=== PATIENT | male | born 1955 | race African-American/Black ===

== ENCOUNTER 2018-08-02 16:37 | Inpatient (IN) | payer OTHER, MEDICARE ==
[2018-08-02 20:30] VITALS: BMI 31.6
--- NOTE | 2018-08-02 21:18 | HP ---
CIWA Score - CIWA Score Nausea/Vomitin-Mild Nausea/No Vomiting Muscle Tremors: 4-Moderate,w/Arms Extend Anxiety: 4-Mod. Anxious/Guarded Agitation: 4-Moderately Restless Paroxysmal Sweats: 1-Minimal Palms Moist Orientation: 2-Disoriented Date<2 days Tacttile Disturbances: 1-Very Mild Itch/Numbness Auditory Disturbances: 0-None Visual Disturbances: 0-None Headache: 1-Very Mild CIWA-Ar Total Score: 18 Admission [facility] - HPI Chief Complaint: Alcohol withdrawal symptoms Allergies/Adverse Reactions: Allergies Allergy/AdvReac Type Severity Reaction Status Date / Time No Known Allergies Allergy Verified 08/02/18 19:59 History of Present Illness: 62 years old male with 49 years history of alcohol dependence is seeking admission to detox. Patient has been in previous detox at [facility] and reports 6 years of sobriety. He has medical history of hypertension, DM type 2, depression and phantom pain (bilateral stump). He denies suicide attempt and suicidal ideation at this time.This is his first admission to [facility]. Exam Limitations: No Limitations - Ebola screening Have you traveled outside of the country in the last 21 days: No (N) Have you had contact with anyone from an Ebola affected area: No Have you been sick,other than usual withdrawal symptoms: No Do you have a fever: No - Review of Systems Constitutional: Malaise, Changes in sleep EENT: reports: Other (wears prescription glasses) Respiratory: reports: No Symptoms reported Cardiac: reports: No Symptoms Reported GI: reports: Diarrhea (x 4), Poor Appetite, Poor Fluid Intake, Abdominal cramping : reports: No Symptoms Reported Musculoskeletal: reports: Other (phantom pain) Patient History - Patient Medical History Hx Anemia: No Hx Asthma: No Hx Chronic Obstructive Pulmonary Disease (COPD): No Hx Cardiac Disorders: No Hx Congestive Heart Failure: No Hx Hypertension: Yes (Novasc) Hx Hypercholesterolemia: No Hx Pacemaker: No HX Cerebrovascular Accident: No Hx Seizures: No Hx Diabetes: Yes (Metformin) Hx Gastrointestinal Disorders: No Hx Liver Disease: No Hx Genitourinary Disorders: No Hx Sexually Transmitted Disorders: No Hx Renal Disease (ESRD): No Hx Thyroid Disease: No Hx Human Immunodeficiency Virus (HIV): No (Negative 2018) Hx Hepatitis C: No Hx Depression: Yes (Not on medication) Hx Suicide Attempt: No (Denies suicidal ideation at this time) Hx Schizophrenia: No Other Medical History: Phantom pain - Not on medic ation - Patient Surgical History Past Surgical History: No Hx Neurologic Surgery: No Hx Cataract Extraction: No Hx Cardiac Surgery: No Hx Lung Surgery: No Hx Abdominal Surgery: No Hx Appendectomy: No Hx Cholecystectomy: No Hx Genitourinary Surgery: No Hx Section: No Hx Orthopedic Surgery: Yes (Amputation - Right leg 2001 and left leg 2006) Other Surgical History: Anesthesia Reaction: No - PPD History Previous Implant?: Yes Documented Results: Positive w/proof Implanted On Prior [facility] Admission?: No PPD to be Administered?: No - Reproductive History Patient is a Female of Child Bearing Age (11 -55 yrs old): No (MALE) - Smoking Cessation Smoking history: Never smoked Have you smoked in the past 12 months: No Hx Chewing Tobacco Use: No Initiated information on smoking cessation: No - Substance & Tx. History Hx Alcohol Use: Yes Hx Substance Use: No Substance Use Type: Alcohol Hx Substance Use Treatment: Yes ([facility]) - Substances Abused Alcohol Route: Oral Frequency: Daily Amount used: liquor- 3 pints Age of first use: 12 Date of Last Use: 08/01/18 Family Disease History - Family Disease History Family Disease History: Diabetes: Mother, Heart Disease: Mother, CA: Father ( lung c ancer - ) Admission Physical Exam S - Vital Signs Vital Signs: Vital Signs - 24 hr 08/02/18 19:58 Temperature 98.8 F Pulse Rate 85 Respiratory 18 Rate Blood Pressure 190/100 H - Physical General Appearance: Yes: Moderate Distress, Tremorous, Anxious HEENTM: Yes: EOMI, Normal ENT Inspection, Normal Voice, SAWYER Respiratory: Yes: Lungs Clear, Normal Breath Sounds, No Respiratory Distress Neck: Yes: Supple Breast: Yes: Breast Exam Deferred Cardiology: Yes: Regular Rhythm, Regular Rate Abdominal: Yes: Normal Bowel Sounds Genitourinary: Yes: Within Normal Limits Back: Yes: Normal Inspection Extremities: Yes: Tremors, Other (Bilateral above knee amputation) Neurological: Yes: Alert, Normal Mood/Affect Integumentary: Yes: Warm Lymphatic: Yes: Within Normal Limits - Diagnostic (1) Hypertension Current Visit: Yes Status: Acute Qualifiers: Hypertension type: essential hypertension Qualified Code(s): I10 - Essential (primary) hypertension (2) DM type 2 (diabetes mellitus, type 2) Current Visit: Yes Status: Acute Qualifiers: Diabetes mellitus complication status: with unspecified complications (3) Depression Current Visit: Yes Status: Chronic Qualifiers: Depression Type: unspecified Qualified Code(s): F32.9 - Major depressive disorder, single episode, unspecified (4) History of falling, presenting hazards to health Current Visit: Yes Status: Chronic (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 - Detox or Rehab [facility] Level of Care: Medically Managed Detox Regimen/Protocol: Librium [facility] Breath Alcohol Content Breath Alcohol Content: 0 Urine Drug Screen - Results Drug Screen Negative: No Urine Drug Screen Results: BZO-Benzodiazepines
[2018-08-02] MEDS ORDERED: guaiFENesin/D-METHORPHAN HB 10 ML UNIT-DOSE CUPS PO PRN (21:35)
[2018-08-02] MEDS ORDERED: chlordiazePOXIDE HCL 25 MG CAPSULE PO PRN (21:35)
[2018-08-02] MEDS ORDERED: MAGNESIUM CITRATE 300 ML BOTTLE PO PRN (21:35)
[2018-08-02] MEDS ORDERED: MENTHOL/PHENOL 1 EACH UD MM PRN (21:35)
[2018-08-02] MEDS ORDERED: MAG HYDROX/AL HYDROX/SIMETH 30 ML UNIT-DOSE CUP PO PRN (21:35)
[2018-08-02] MEDS ORDERED: MAGNESIUM HYDROX 2400MG/30ML ORAL SUSPENSION 30 ML CUP PO PRN (21:35)
[2018-08-02] MEDS ORDERED: P-EPHED 60MG/TRIPROLIDI 2.5MG TABLET PO PRN (21:35)
[2018-08-02] MEDS ORDERED: NICOTINE POLACRILEX 2 MG GUM BC PRN (21:35)
[2018-08-02] MEDS ORDERED: ACETAMINOPHEN 325 MG TABLET (FP) PO PRN (21:35)
[2018-08-02] MEDS: amLODIPine BESYLATE 10 MG TABLET (FP) PO SCH (22:46)
[2018-08-02] MEDS: chlordiazePOXIDE HCL 25 MG CAPSULE PO SCH (22:47)
[2018-08-02] MEDS: THIAMINE HCL 100 MG TABLET (FP) PO SCH (22:47)
[2018-08-03 01:43] LABS: URINE APPEARANCE CLEAR; URINE BILIRUBIN NEGATIVE (<2.0 mg/dL); URINE COLOR STRAW; URINE GLUCOSE (UA) 1+ (NEGATIVE); URINE KETONE NEGATIVE (NEGATIVE); URINE LEUK ESTERASE NEGATIVE (NEGATIVE); URINE NITRITE NEGATIVE (NEGATIVE); URINE PROTEIN NEGATIVE (NEGATIVE); URINE UROBILINOGEN NEGATIVE mg/dL (0.2-1.0)
[2018-08-03 02:03] LABS: EPI CELLS RARE /HPF (FEW); URINE MUCUS RARE
[2018-08-03] MEDS: chlordiazePOXIDE HCL 25 MG CAPSULE PO SCH ×4 (06:29→22:11)
[2018-08-03] MEDS: metFORMIN HCL 500 MG TABLET (FP) PO SCH ×2 (06:29→16:40)
[2018-08-03] MEDS ORDERED: NICOTINE 14 MG/24 HOURS TOPICAL PATCH TD SCH (10:00)
[2018-08-03] MEDS: PRENATAL VITAMINS W/ FOLIC ACID TABLET (FP) PO SCH (10:15)
[2018-08-03] MEDS: amLODIPine BESYLATE 10 MG TABLET (FP) PO SCH (10:15)
--- NOTE | 2018-08-03 10:24 | PN ---
S CIWA - CIWA Score Nausea/Vomitin-No Nausea/No Vomiting Muscle Tremors: 2 Anxiety: 2 Agitation: 2 Paroxysmal Sweats: 2 Orientation: 0-Oriented Tacttile Disturbances: 0-None Auditory Disturbances: 0-None Visual Disturbances: 0-None Headache: 0-None Present CIWA-Ar Total Score: 8 BHS Progress Note (SOAP) Subjective: PATIENT C/O CHILLS, SWEATING, INTERRUPTED SLEEP, ANXIETY AND RESTLESSNESS. Objective: 08/03/18 10:21 Laboratory Tests 08/02/18 08/02/18 08/03/18 00:01 20:08 06:35 POC Glucometer 150 169 Urine Color Straw Urine Appearance Clear Urine pH 6.0 Ur Specific [place] 1.010 Urine Protein Negative Urine Glucose (UA) 1+ H Urine Ketones Negative Urine Blood 1+ H Urine Nitrite Negative Urine Bilirubin Negative Urine Urobilinogen Negative Ur Leukocyte Esterase Negative Urine WBC (Auto) 1 Urine RBC (Auto) 2 Ur Epithelial Cells Rare Urine Mucus Rare Vital Signs Temperature 97.6 F 08/03/18 09:23 Pulse Rate 88 08/03/18 09:23 Respiratory Rate 16 08/03/18 09:23 Blood Pressure 172/91 H 08/03/18 09:23 O2 Sat by Pulse Oximetry (%) PE: SKIN WARM AND MOIST ALERT AND ORIENTED X 3 CAR S1S2 RESP CTA BL EXT FULL ROM, +TREMORS Assessment: 08/03/18 10:22 WITHDRAWAL SX ELEVATED BP Plan: PATIENT PENDING MEDICATION ADMINISTRATION WITH AMLODIPINE WILL MONITOR BP CONTINUE DETOX REGIMEN ENCOURAGE ORAL FLUIDS IF BP REMAINS ELEVATED CONSIDER ADDING CLONIDINE.
[2018-08-03 11:41] LABS: HEMATOCRIT 31.9 % (35.4-49); HEMOGLOBIN 10.5 GM/dL (11.7-16.9); MCH 26.5 pg (25.7-33.7); MEAN CELL VOLUME 80.3 fl (80-96); MEAN PLT VOLUME 7.4 fl (7.5-11.1); PLATELET COUNT 203 K/MM3 (134-434); RBC 3.97 M/mm3 (4.00-5.60); RDW 22.2 % (11.9-15.9); WHITE BLOOD COUNT 3.6 K/mm3 (4.0-10.0)
[2018-08-03 11:58] LABS: ALBUMIN 2.9 g/dl (3.4-5.0); ALK PHOS 317 U/L (45-117); ANION GAP 11 MMOL/L (8-16); BILIRUBIN,TOTAL 0.3 mg/dL (0.2-1); BLOOD UREA NITROGEN 6 mg/dL (7-18); CALCIUM 7.5 mg/dL (8.5-10.1); CHLORIDE 99 mmol/L (98-107); CO2 27 mmol/L (21-32); CREATININE 0.7 mg/dL (0.55-1.3); GLUCOSE,RANDOM 164 mg/dL (74-106); SGOT/AST 140 U/L (15-37); SGPT/ALT 46 U/L (13-61); SODIUM 138 mmol/L (136-145); TOT PROT 7.1 g/dl (6.4-8.2)
[2018-08-03] MEDS: LOPERAMIDE HCL 2 MG CAPSULE PO PRN (12:14)
[2018-08-03 12:53] LABS: POTASSIUM 2.7 mmol/L (3.5-5.1)
[2018-08-03] MEDS ORDERED: cloNIDine HCL 0.1 MG TABLET PO ONE (15:20)
--- NOTE | 2018-08-03 16:05 | EKG ---
Test Reason : Blood Pressure : / mmHG Vent. Rate : 098 BPM Atrial Rate : 098 BPM P-R Int : 136 ms QRS Dur : 090 ms QT Int : 388 ms P-R-T Axes : 049 -01 009 degrees QTc Int : 495 ms NORMAL SINUS RHYTHM NO PREVIOUS ECGS AVAILABLE Confirmed by Jose Stern ([id number]) on 08/03/2018 4:05:08 PM Referred By: Confirmed By:Jose Stern
--- NOTE | 2018-08-03 17:28 | CONSULT ---
[facility] Psychiatric Consult - Data Date of interview: 08/03/18 Admission source: [facility] Identifying data: First admission to [facility] for this 62 y/o AA male seeking detoxification tretment on for alcohol dependence. Patient is single, a father of two, domiciled at [facility], unemployed, disabled (double BKA amputee) and supported on [facility] benefits (recently cut off ; reasons unknown as per patient). Substance Abuse History: Confirmed by the patient in this interview. patient admits to heavy consumption of alcohol (three pints of vodka daily). Details in current [facility] report : Smoking history: Never smoked. Have you smoked in the past 12 months: No. Hx Chewing Tobacco Use: No. Initiated information on smoking cessation: No. - Substance & Tx. History. Hx Alcohol Use: Yes. Hx Substance Use: No. Substance Use Type: Alcohol. Hx Substance Use Treatment: Yes ([facility]). - Substances Abused. Alcohol. Route: Oral. Frequency : Daily. Amount used: liquor- 3 pints. Age of first use: 12. Date of Last Use : 08/01/18 Medical History: Diabetes mellitus, hypertension, bilateral leg amputation below the knee (right : complication of DM + left : complication of a compartment syndrome), phantom limp pain and obesity. Psychiatric History: Patient denies. Physical/Sexual Abuse/Trauma History: Severe physical disabilities, homelessness , separation from relatives, loss of financial benefits and alcohol addiction. Additional Comment: Urine Drug Screen Results: BZO-Benzodiazepines. Noted. Mental Status Exam - Mental Status Exam Alert and Oriented to: Time, Place, Person Cognitive Function: Good Patient Appearance: Unkempt, Disheveled (moving around in a wheelchair, bilateral BKA amputee) Mood: Apprehensive (midly), Hopeful Affect: Normal Range Patient Behavior: Fatigued, Cooperative (friendly) Speech Pattern: Clear, Appropriate Voice Loudness: Normal Thought Process: Intact, Goal Oriented Thought Disorder: Not Present Hallucinations: Denies Suicidal Ideation: Denies Homicidal Ideation: Denies Insight/Judgement: Poor Sleep: Well Appetite: Good Gait/Station: Other (wheelchair-bound) Psychiatric Findings - Problem List ([place] 1, 2,3) (1) Alcohol dependence with uncomplicated withdrawal Current Visit: Yes Status: Acute - Initial Treatment Plan Initial Treatment Plan: Psychoeducation. Sleep hygiene. Detoxification. Supportive and group psychotherapy. AA meetings recommended. Patient is encouraged in his decision to pursue rehabilitation after this treatment. Made aware of the currently available resources for relapse prevention (naltrexone, acamprosate). Falls precautions. Observation.
[2018-08-03] MEDS: POTASSIUM CHLORIDE TABS 20 MEQ TABLET.ER (FP) PO SCH (17:44)
[2018-08-03] MEDS: cloNIDine HCL 0.1 MG TABLET PO SCH (22:11)
[2018-08-03] MEDS: THIAMINE HCL 100 MG TABLET (FP) PO SCH (22:11)
[2018-08-03] MEDS: MELATONIN 5 MG TABLETS PO PRN (22:11)
[2018-08-03] MEDS: IBUPROFEN 400 MG TABLET (FP) PO PRN (22:12)
[2018-08-04] MEDS: chlordiazePOXIDE HCL 25 MG CAPSULE PO SCH ×3 (05:36→17:03)
[2018-08-04] MEDS: metFORMIN HCL 500 MG TABLET (FP) PO SCH ×2 (07:38→17:02)
[2018-08-04] MEDS: POTASSIUM CHLORIDE TABS 20 MEQ TABLET.ER (FP) PO SCH ×2 (10:04→17:25)
[2018-08-04] MEDS: PRENATAL VITAMINS W/ FOLIC ACID TABLET (FP) PO SCH (10:04)
[2018-08-04] MEDS: amLODIPine BESYLATE 10 MG TABLET (FP) PO SCH (10:04)
[2018-08-04] MEDS: cloNIDine HCL 0.1 MG TABLET PO SCH ×2 (10:05→22:04)
[2018-08-04] MEDS: NICOTINE 21 MG/24 HOURS TOPICAL PATCH TD SCH (10:06)
--- NOTE | 2018-08-04 10:27 | PN ---
S CIWA - CIWA Score Nausea/Vomitin-No Nausea/No Vomiting Muscle Tremors: 2 Anxiety: 2 Agitation: 0-Normal Activity Paroxysmal Sweats: 2 Orientation: 0-Oriented Tacttile Disturbances: 0-None Auditory Disturbances: 0-None Visual Disturbances: 0-None Headache: 0-None Present CIWA-Ar Total Score: 6 BHS Progress Note (SOAP) Subjective: PATIENT C/O ANXIETY, INTERMITTENT SWEATING AND SHAKES. Objective: 08/04/18 10:25 Vital Signs Temperature 96.9 F L 08/04/18 10:00 Pulse Rate 81 08/04/18 10:00 Respiratory Rate 18 08/04/18 10:00 Blood Pressure 126/66 08/04/18 10:00 O2 Sat by Pulse Oximetry (%) Laboratory Tests 08/02/18 08/02/18 08/03/18 00:01 20:08 06:35 WBC RBC Hgb Hct MCV MCH MCHC RDW Plt Count MPV Sodium Potassium Chloride Carbon Dioxide Anion Gap BUN Creatinine Creat Clearance w eGFR POC Glucometer 150 169 Random Glucose Calcium Total Bilirubin AST ALT Alkaline Phosphatase Total Protein Albumin Urine Color Straw Urine Appearance Clear Urine pH 6.0 Ur Specific [place] 1.010 Urine Protein Negative Urine Glucose (UA) 1+ H Urine Ketones Negative Urine Blood 1+ H Urine Nitrite Negative Urine Bilirubin Negative Urine Urobilinogen Negative Ur Leukocyte Esterase Negative Urine WBC (Auto) 1 Urine RBC (Auto) 2 Ur Epithelial Cells Rare Urine Mucus Rare RPR Titer HIV 1&2 Antibody Screen HIV P24 Antigen 08/03/18 08/03/18 08/03/18 07:00 07:00 07:00 WBC 3.6 L RBC 3.97 L Hgb 10.5 L Hct 31.9 L MCV 80.3 MCH 26.5 MCHC 33.0 RDW 22.2 H Plt Count 203 MPV 7.4 L Sodium 138 Potassium 2.7 L* Chloride 99 Carbon Dioxide 27 Anion Gap 11 BUN 6 L Creatinine 0.7 Creat Clearance w eGFR > 60 POC Glucometer Random Glucose 164 H Calcium 7.5 L Total Bilirubin 0.3 AST 140 H ALT 46 Alkaline Phosphatase 317 H Total Protein 7.1 Albumin 2.9 L Urine Color Urine Appearance Urine pH Ur Specific [place] Urine Protein Urine Glucose (UA) Urine Ketones Urine Blood Urine Nitrite Urine Bilirubin Urine Urobilinogen Ur Leukocyte Esterase Urine WBC (Auto) Urine RBC (Auto) Ur Epithelial Cells Urine Mucus RPR Titer Nonreactive HIV 1&2 Antibody Screen HIV P24 Antigen 08/03/18 08/03/18 08/04/18 08:00 16:24 05:35 WBC RBC Hgb Hct MCV MCH MCHC RDW Plt Count MPV Sodium Potassium Chloride Carbon Dioxide Anion Gap BUN Creatinine Creat Clearance w eGFR POC Glucometer 251 300 Random Glucose Calcium Total Bilirubin AST ALT Alkaline Phosphatase Total Protein Albumin Urine Color Urine Appearance Urine pH Ur Specific [place] Urine Protein Urine Glucose (UA) Urine Ketones Urine Blood Urine Nitrite Urine Bilirubin Urine Urobilinogen Ur Leukocyte Esterase Urine WBC (Auto) Urine RBC (Auto) Ur Epithelial Cells Urine Mucus RPR Titer HIV 1&2 Antibody Screen Negative HIV P24 Antigen Negative PE: ALERT AND ORIENTED X 3 SKIN WARM AND MOIST CAR S1S2 RESP CTA BL EXT BLE AKA, MILD TREMORS OF HANDS Assessment: 08/04/18 10:26 WITHDRAWAL SX Plan: CONTINUE DETOX REGIMEN ENCOURAGE ORAL FLUIDS POTASSIUM LEVEL ORDERED FOR THIS AM REPEAT UA
[2018-08-04] MEDS ORDERED: INSULIN (NOVOLOG) ASPART 100 UNITS/ML 10ML VIAL SQ ONE (11:36)
[2018-08-04] MEDS ORDERED: INSULIN SLIDING SCALE (NOVOLOG) 1 VIAL SQ ONE (12:00)
[2018-08-04] MEDS: INSULIN SLIDING SCALE (NOVOLOG) 1 VIAL SQ SCH ×2 (17:02→22:04)
[2018-08-04] MEDS: THIAMINE HCL 100 MG TABLET (FP) PO SCH (22:04)
[2018-08-04] MEDS: chlordiazePOXIDE 5 MG CAPSULE PO SCH (22:04)
[2018-08-04] MEDS: MELATONIN 5 MG TABLETS PO PRN (22:04)
[2018-08-05] MEDS: metFORMIN HCL 500 MG TABLET (FP) PO SCH ×2 (06:44→17:16)
[2018-08-05] MEDS: chlordiazePOXIDE 5 MG CAPSULE PO SCH ×2 (06:44→10:08)
[2018-08-05] MEDS: INSULIN SLIDING SCALE (NOVOLOG) 1 VIAL SQ SCH ×3 (08:04→16:49)
[2018-08-05] MEDS: LOPERAMIDE HCL 2 MG CAPSULE PO PRN (09:28)
[2018-08-05] MEDS: IBUPROFEN 400 MG TABLET (FP) PO PRN (09:28)
[2018-08-05] MEDS: PRENATAL VITAMINS W/ FOLIC ACID TABLET (FP) PO SCH (10:08)
[2018-08-05] MEDS: NICOTINE 21 MG/24 HOURS TOPICAL PATCH TD SCH (10:08)
[2018-08-05] MEDS: amLODIPine BESYLATE 10 MG TABLET (FP) PO SCH (10:09)
[2018-08-05] MEDS: cloNIDine HCL 0.1 MG TABLET PO SCH (10:09)
[2018-08-05] MEDS: POTASSIUM CHLORIDE TABS 20 MEQ TABLET.ER (FP) PO SCH ×2 (10:09→17:32)
--- NOTE | 2018-08-05 12:46 | PN ---
S Progress Note (SOAP) Subjective: Tremor, interrupted sleep Objective: 08/05/18 12:40 Last Vital Signs Temp Pulse Resp BP Pulse Ox 96.2 F L 85 16 135/70 08/05/18 09:09 08/05/18 09:09 08/05/18 09:09 08/05/18 09:09 Laboratory Tests 08/02/18 08/02/18 08/03/18 00:01 20:08 06:35 WBC RBC Hgb Hct MCV MCH MCHC RDW Plt Count MPV Sodium Potassium Chloride Carbon Dioxide Anion Gap BUN Creatinine Creat Clearance w eGFR POC Glucometer 150 169 Random Glucose Calcium Total Bilirubin AST ALT Alkaline Phosphatase Total Protein Albumin Urine Color Straw Urine Appearance Clear Urine pH 6.0 Ur Specific [place] 1.010 Urine Protein Negative Urine Glucose (UA) 1+ H Urine Ketones Negative Urine Blood 1+ H Urine Nitrite Negative Urine Bilirubin Negative Urine Urobilinogen Negative Ur Leukocyte Esterase Negative Urine WBC (Auto) 1 Urine RBC (Auto) 2 Ur Epithelial Cells Rare Urine Mucus Rare RPR Titer HIV 1&2 Antibody Screen HIV P24 Antigen 08/03/18 08/03/18 08/03/18 07:00 07:00 07:00 WBC 3.6 L RBC 3.97 L Hgb 10.5 L Hct 31.9 L MCV 80.3 MCH 26.5 MCHC 33.0 RDW 22.2 H Plt Count 203 MPV 7.4 L Sodium 138 Potassium 2.7 L* Chloride 99 Carbon Dioxide 27 Anion Gap 11 BUN 6 L Creatinine 0.7 Creat Clearance w eGFR > 60 POC Glucometer Random Glucose 164 H Calcium 7.5 L Total Bilirubin 0.3 AST 140 H ALT 46 Alkaline Phosphatase 317 H Total Protein 7.1 Albumin 2.9 L Urine Color Urine Appearance Urine pH Ur Specific [place] Urine Protein Urine Glucose (UA) Urine Ketones Urine Blood Urine Nitrite Urine Bilirubin Urine Urobilinogen Ur Leukocyte Esterase Urine WBC (Auto) Urine RBC (Auto) Ur Epithelial Cells Urine Mucus RPR Titer Nonreactive HIV 1&2 Antibody Screen HIV P24 Antigen 08/03/18 08/03/18 08/04/18 08:00 16:24 05:35 WBC RBC Hgb Hct MCV MCH MCHC RDW Plt Count MPV Sodium Potassium Chloride Carbon Dioxide Anion Gap BUN Creatinine Creat Clearance w eGFR POC Glucometer 251 300 Random Glucose Calcium Total Bilirubin AST ALT Alkaline Phosphatase Total Protein Albumin Urine Color Urine Appearance Urine pH Ur Specific [place] Urine Protein Urine Glucose (UA) Urine Ketones Urine Blood Urine Nitrite Urine Bilirubin Urine Urobilinogen Ur Leukocyte Esterase Urine WBC (Auto) Urine RBC (Auto) Ur Epithelial Cells Urine Mucus RPR Titer HIV 1&2 Antibody Screen Negative HIV P24 Antigen Negative 08/04/18 08/04/18 08/04/18 11:31 16:24 21:34 WBC RBC Hgb Hct MCV MCH MCHC RDW Plt Count MPV Sodium Potassium Chloride Carbon Dioxide Anion Gap BUN Creatinine Creat Clearance w eGFR POC Glucometer 326 267 395 Random Glucose Calcium Total Bilirubin AST ALT Alkaline Phosphatase Total Protein Albumin Urine Color Urine Appearance Urine pH Ur Specific [place] Urine Protein Urine Glucose (UA) Urine Ketones Urine Blood Urine Nitrite Urine Bilirubin Urine Urobilinogen Ur Leukocyte Esterase Urine WBC (Auto) Urine RBC (Auto) Ur Epithelial Cells Urine Mucus RPR Titer HIV 1&2 Antibody Screen HIV P24 Antigen 08/05/18 08/05/18 08/05/18 06:43 07:00 10:56 WBC RBC Hgb Hct MCV MCH MCHC RDW Plt Count MPV Sodium Potassium 3.8 Chloride Carbon Dioxide Anion Gap BUN Creatinine Creat Clearance w eGFR POC Glucometer 266 374 Random Glucose Calcium Total Bilirubin AST ALT Alkaline Phosphatase Total Protein Albumin Urine Color Urine Appearance Urine pH Ur Specific [place] Urine Protein Urine Glucose (UA) Urine Ketones Urine Blood Urine Nitrite Urine Bilirubin Urine Urobilinogen Ur Leukocyte Esterase Urine WBC (Auto) Urine RBC (Auto) Ur Epithelial Cells Urine Mucus RPR Titer HIV 1&2 Antibody Screen HIV P24 Antigen Labs reviewed: abnormal UA Assessment: 08/05/18 12:46 Withdrawal sxs Noted with abnormal UA Plan: Continue detox Abnormal UA: encouraged PO water intake, repeat UA
[2018-08-05] MEDS ORDERED: chlordiazePOXIDE HCL 10 MG CAPSULE PO ONE (17:00)
--- NOTE | 2018-08-05 17:42 | DS ---
[facility] Detox Discharge Summary Admission Date: 08/02/18 Discharge Date: 08/05/18 - History Present History: Alcohol Dependence Additional Comments: Patient admitted for alcohol withdrawal symptoms. Pertinent Past History: Patient w/ a 47 year hx of alcohol use disorder. Co-morbidities DM, Bilateral AKA, HTN. Patient w/ a hx PPD (+) w/o pulmonary symptoms. - Physical Exam Results Vital Signs: Vital Signs Temperature 96.7 F L 08/05/18 13:49 Pulse Rate 78 08/05/18 13:49 Respiratory Rate 16 08/05/18 13:49 Blood Pressure 150/76 08/05/18 13:49 O2 Sat by Pulse Oximetry (%) Pertinent Admission Physical Exam Findings: Patient admitted to detox to assist in alcohol withdrawal and facilitate detox. Co-morbidities monitored and treated as appropriate. Lab Results WBC 3.6 K/mm3 (4.0-10.0) L 08/03/18 07:00 RBC 3.97 M/mm3 (4.00-5.60) L 08/03/18 07:00 Hgb 10.5 GM/dL (11.7-16.9) L 08/03/18 07:00 Hct 31.9 % (35.4-49) L 08/03/18 07:00 MCV 80.3 fl (80-96) 08/03/18 07:00 MCHC 33.0 g/dl (32.0-35.9) 08/03/18 07:00 RDW 22.2 % (11.9-15.9) H 08/03/18 07:00 Plt Count 203 K/MM3 (134-434) 08/03/18 07:00 Sodium 138 mmol/L (136-145) 08/03/18 07:00 Potassium 3.8 mmol/L (3.5-5.1) 08/05/18 07:00 Chloride 99 mmol/L (98-107) 08/03/18 07:00 Carbon Dioxide 27 mmol/L (21-32) 08/03/18 07:00 Anion Gap 11 MMOL/L (8-16) 08/03/18 07:00 BUN 6 mg/dL (7-18) L 08/03/18 07:00 Creatinine 0.7 mg/dL (0.55-1.3) 08/03/18 07:00 Random Glucose 164 mg/dL (74-106) H 08/03/18 07:00 Calcium 7.5 mg/dL (8.5-10.1) L 08/03/18 07:00 CXR negative. - Treatment Hospital Course: Detox Protocol Followed, Detoxed Safely, Responded well, Discharged Condition Good, Rehab Referral Accepted Patient has Accepted a Rehab Referral to: [facility] - Medication Discharge Medications: Ambulatory Orders Amlodipine Besylate [Norvasc -] 10 mg PO DAILY 08/02/18 Metformin HCl [Glucophage] 500 mg PO BID 08/02/18 - Diagnosis (1) S/P AKA (above knee amputation) bilateral Current Visit: Yes Status: Chronic (2) Alcohol dependence with uncomplicated withdrawal Current Visit: Yes Status: Acute (3) DM type 2 (diabetes mellitus, type 2) Current Visit: Yes Status: Chronic Qualifiers: Diabetes mellitus exterminator helper termite insulin use: without fci use Diabetes mellitus complication status: with hyperglycemia Qualified Code(s): E11.65 - Type 2 diabetes mellitus with hyperglycemia (4) History of falling, presenting hazards to health Current Visit: Yes Status: Chronic (5) Hypertension Current Visit: Yes Status: Chronic Qualifiers: Hypertension type: essential hypertension Qualified Code(s): I10 - Essential (primary) hypertension (6) Positive PPD Current Visit: Yes Status: Chronic - AMA Did Patient Leave Against Medical Advice: No
[2018-08-05 17:43] VITALS: BP 159/79; PULSE 84; TEMP 97.1
[2018-08-05 18:34] LABS: URINE APPEARANCE SLCLOUDY; URINE BILIRUBIN NEGATIVE (<2.0 mg/dL); URINE COLOR YELLOW; URINE GLUCOSE (UA) 3+ (NEGATIVE); URINE KETONE TRACE (NEGATIVE); URINE LEUK ESTERASE TRACE (NEGATIVE); URINE NITRITE NEGATIVE (NEGATIVE); URINE PROTEIN NEGATIVE (NEGATIVE); URINE UROBILINOGEN NEGATIVE mg/dL (0.2-1.0)
[2018-08-05 18:50] LABS: EPI CELLS RARE /HPF (FEW); URINE MUCUS RARE
[2018-08-05] MEDS ORDERED: chlordiazePOXIDE HCL 10 MG CAPSULE PO SCH (23:00)
== END 2018-08-05 06:35 | disposition other institution (70) | DRG 775 ==
LOC: YASAS 16:37 → Y3N 20:49
PROC: HZ2ZZZZ Detoxification Services for Substance Abuse Treatment (ICD-10-PCS; principal; 2018-08-02)
DX: F10.230 Alcohol dependence with withdrawal, uncomplicated (principal); F32.9 Major depressive disorder, single episode, unspecified; I10 Essential (primary) hypertension; E11.9 Type 2 diabetes mellitus without complications; Z79.84 Long term (current) use of oral hypoglycemic drugs; E87.6 Hypokalemia; R82.90 Unspecified abnormal findings in urine; R76.11 Nonspecific reaction to tuberculin skin test without active tuberculosis; Z91.81 History of falling; Z89.612 Acquired absence of left leg above knee; Z89.611 Acquired absence of right leg above knee; Z99.3 Dependence on wheelchair
CPT/HCPCS: 36415; 71045-TC-FY; 80053; 81003; 81015; 82962; 84132; 85027; 86593; 87389; 93005; 93010; J0735

== ENCOUNTER 2018-08-05 19:05 | Inpatient (IN) | payer MEDICARE, OTHER ==
--- NOTE | 2018-08-05 20:18 | HP ---
[facility] Rehab Assess/Revision - Admission History Admitted to Rehab from: [facility] Date of Admission to Rehab: 08/05/2018 - Findings Detox History & Physical reviewed: Yes Concur with findings: Yes Inpatient Rehab Admission - Initial Determination Are CD services needed?: Yes Free of communicable disease: Yes Not in need of hospitalization: Yes - Rehab Admission Criteria Previous failed treatment: Yes Poor recovery environment: Yes Comorbidities: Yes Lacks judgement: No Patient is meeting Inpatient Rehab admission criteria:: Yes
[2018-08-05] MEDS ORDERED: LOPERAMIDE HCL 2 MG CAPSULE PO PRN (20:21)
[2018-08-05] MEDS ORDERED: MAGNESIUM HYDROX 2400MG/30ML ORAL SUSPENSION 30 ML CUP PO PRN (20:21)
[2018-08-05] MEDS ORDERED: ACETAMINOPHEN 325 MG TABLET (FP) PO PRN (20:21)
[2018-08-05] MEDS ORDERED: MENTHOL/PHENOL 1 EACH UD MM PRN (20:21)
[2018-08-05] MEDS ORDERED: MAGNESIUM CITRATE 300 ML BOTTLE PO PRN (20:21)
[2018-08-05 20:51] VITALS: BMI 31.6
[2018-08-05] MEDS: INSULIN SLIDING SCALE (NOVOLOG) 1 VIAL SQ SCH (21:39)
[2018-08-05] MEDS: MAG HYDROX/AL HYDROX/SIMETH 30 ML UNIT-DOSE CUP PO PRN (21:41)
[2018-08-05] MEDS: MELATONIN 5 MG TABLETS PO PRN (21:42)
[2018-08-05] MEDS: THIAMINE HCL 100 MG TABLET (FP) PO SCH (21:42)
[2018-08-05] MEDS: IBUPROFEN 400 MG TABLET (FP) PO PRN (21:42)
[2018-08-06] MEDS: metFORMIN HCL 500 MG TABLET (FP) PO SCH ×2 (06:59→16:55)
[2018-08-06] MEDS: INSULIN SLIDING SCALE (NOVOLOG) 1 VIAL SQ SCH ×4 (06:59→21:33)
[2018-08-06] MEDS: PRENATAL VITAMINS W/ FOLIC ACID TABLET (FP) PO SCH (09:52)
[2018-08-06] MEDS: amLODIPine BESYLATE 10 MG TABLET (FP) PO SCH (09:53)
[2018-08-06] MEDS: NICOTINE POLACRILEX 2 MG GUM BUC PRN (09:56)
[2018-08-06] MEDS ORDERED: NICOTINE 14 MG/24 HOURS TOPICAL PATCH TD SCH (10:00)
[2018-08-06] MEDS ORDERED: INSULIN (NOVOLOG) ASPART 100 UNITS/ML 10ML VIAL ONE ×2 (11:49→16:44)
[2018-08-06] MEDS: NICOTINE 21 MG/24 HOURS TOPICAL PATCH TD SCH (12:05)
--- NOTE | 2018-08-06 14:18 | HP ---
Psychiatrist Admission - Data Date of interview: 08/06/18 Admission source: [address] [place] [address] Identifying data: This is the first admission to [address] [place] [address] for this 62 yo single AA father of 2 grown children,resides in [facility],supported by [facility]. Medical History: Dm,HTN,S/P Bilateral above the knees amputation. Psychiatric History: denies Physical/Sexual Abuse/Trauma History: denies Vital Signs: Vital Signs - 24 hr 08/06/18 08/06/18 08/06/18 03:30 06:53 09:30 Temperature 97.7 F Pulse Rate 69 73 Respiratory 18 Rate Blood Pressure 150/80 130/66 Allergies/Adverse Reactions: Allergies Allergy/AdvReac Type Severity Reaction Status Date / Time No Known Allergies Allergy Verified 08/02/18 19:59 Date of last physical exam: 08/02/18 Concur with the findings of this exam: Yes - Substance Abuse/Tx History Hx Alcohol Use: Yes (reports drinking since 14-15 yo,1 -3 pints of vodka daily) Hx Substance Use: No Substance Use Type: Alcohol Hx Substance Use Treatment: Yes [facility]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 ) Mental Status Exam - Mental Status Exam Alert and Oriented to: Time (wheel chair bound), Place, Person Cognitive Function: Grossly Intact Patient Appearance: Unkempt Mood: Euthymic Affect: Mood Congruent Patient Behavior: Cooperative Speech Pattern: Clear Voice Loudness: Normal Thought Disorder: Not Present Hallucinations: Denies Suicidal Ideation: Denies Homicidal Ideation: Denies Sleep: Fair Appetite: Good Muscle strength/Tone: Normal Gait/Station: Normal Psychiatric Findings - Problem List ([place] 1, 2,3) (1) Hypertension Current Visit: Yes Status: Chronic Qualifiers: Hypertension type: essential hypertension (2) Positive PPD Current Visit: Yes Status: Chronic (3) S/P AKA (above knee amputation) bilateral Current Visit: Yes Status: Chronic (4) DM type 2 (diabetes mellitus, type 2) Current Visit: Yes Status: Chronic Qualifiers: Diabetes mellitus termite helper insulin use: without halfway use Diabetes mellitus complication status: with unspecified complications Qualified Code(s) : E11.8 - Type 2 diabetes mellitus with unspecified complications (5) Alcohol dependence Current Visit: Yes Status: Chronic - Initial Treatment Plan Initial Treatment Plan: Will monitor progress.
[2018-08-06] MEDS: MELATONIN 5 MG TABLETS PO PRN (21:32)
[2018-08-06] MEDS: MAG HYDROX/AL HYDROX/SIMETH 30 ML UNIT-DOSE CUP PO PRN (21:32)
[2018-08-06] MEDS: IBUPROFEN 400 MG TABLET (FP) PO PRN (21:32)
[2018-08-06] MEDS: THIAMINE HCL 100 MG TABLET (FP) PO SCH (21:34)
[2018-08-07] MEDS: NICOTINE POLACRILEX 2 MG GUM BUC PRN ×3 (06:22→20:36)
[2018-08-07] MEDS: INSULIN SLIDING SCALE (NOVOLOG) 1 VIAL SQ SCH ×4 (07:10→21:08)
[2018-08-07] MEDS: metFORMIN HCL 500 MG TABLET (FP) PO SCH ×2 (07:10→16:56)
[2018-08-07] MEDS: PRENATAL VITAMINS W/ FOLIC ACID TABLET (FP) PO SCH (09:56)
[2018-08-07] MEDS: NICOTINE 21 MG/24 HOURS TOPICAL PATCH TD SCH (09:57)
[2018-08-07] MEDS: amLODIPine BESYLATE 10 MG TABLET (FP) PO SCH (09:57)
[2018-08-07] MEDS: IBUPROFEN 400 MG TABLET (FP) PO PRN ×2 (09:57→16:58)
[2018-08-07] MEDS ORDERED: INSULIN (NOVOLOG) ASPART 100 UNITS/ML 10ML VIAL ONE ×2 (11:58→16:39)
[2018-08-07] MEDS: THIAMINE HCL 100 MG TABLET (FP) PO SCH (21:08)
[2018-08-07] MEDS: MELATONIN 5 MG TABLETS PO PRN (21:08)
[2018-08-08] MEDS: INSULIN SLIDING SCALE (NOVOLOG) 1 VIAL SQ SCH ×4 (07:27→21:18)
[2018-08-08] MEDS ORDERED: INSULIN (NOVOLOG) ASPART 100 UNITS/ML 10ML VIAL ONE ×3 (07:27→16:24)
[2018-08-08] MEDS: metFORMIN HCL 500 MG TABLET (FP) PO SCH ×2 (07:27→16:47)
[2018-08-08] MEDS: PRENATAL VITAMINS W/ FOLIC ACID TABLET (FP) PO SCH (10:15)
[2018-08-08] MEDS: amLODIPine BESYLATE 10 MG TABLET (FP) PO SCH (10:15)
[2018-08-08] MEDS: NICOTINE 21 MG/24 HOURS TOPICAL PATCH TD SCH (10:15)
[2018-08-08] MEDS: NICOTINE POLACRILEX 2 MG GUM BUC PRN (19:09)
[2018-08-08] MEDS: IBUPROFEN 400 MG TABLET (FP) PO PRN (21:18)
[2018-08-08] MEDS: THIAMINE HCL 100 MG TABLET (FP) PO SCH (21:18)
[2018-08-08] MEDS: MELATONIN 5 MG TABLETS PO PRN (21:19)
[2018-08-09] MEDS: metFORMIN HCL 500 MG TABLET (FP) PO SCH ×2 (06:52→16:50)
[2018-08-09] MEDS: INSULIN SLIDING SCALE (NOVOLOG) 1 VIAL SQ SCH ×4 (06:56→21:38)
[2018-08-09] MEDS ORDERED: INSULIN (NOVOLOG) ASPART 100 UNITS/ML 10ML VIAL ONE ×3 (07:04→16:47)
[2018-08-09] MEDS: PRENATAL VITAMINS W/ FOLIC ACID TABLET (FP) PO SCH (09:51)
[2018-08-09] MEDS: amLODIPine BESYLATE 10 MG TABLET (FP) PO SCH (09:51)
[2018-08-09] MEDS: NICOTINE 21 MG/24 HOURS TOPICAL PATCH TD SCH (09:51)
[2018-08-09] MEDS: IBUPROFEN 400 MG TABLET (FP) PO PRN ×2 (09:52→21:36)
[2018-08-09] MEDS: MELATONIN 5 MG TABLETS PO PRN (21:34)
[2018-08-09] MEDS: THIAMINE HCL 100 MG TABLET (FP) PO SCH (21:34)
[2018-08-10] MEDS: INSULIN SLIDING SCALE (NOVOLOG) 1 VIAL SQ SCH ×4 (07:16→21:11)
[2018-08-10] MEDS: metFORMIN HCL 500 MG TABLET (FP) PO SCH ×2 (07:16→16:43)
[2018-08-10] MEDS: PRENATAL VITAMINS W/ FOLIC ACID TABLET (FP) PO SCH (10:11)
[2018-08-10] MEDS: NICOTINE 21 MG/24 HOURS TOPICAL PATCH TD SCH (10:11)
[2018-08-10] MEDS: amLODIPine BESYLATE 10 MG TABLET (FP) PO SCH (10:11)
[2018-08-10] MEDS: IBUPROFEN 400 MG TABLET (FP) PO PRN ×2 (10:12→21:11)
[2018-08-10] MEDS: THIAMINE HCL 100 MG TABLET (FP) PO SCH (21:11)
[2018-08-10] MEDS: MELATONIN 5 MG TABLETS PO PRN (21:12)
[2018-08-11] MEDS: INSULIN SLIDING SCALE (NOVOLOG) 1 VIAL SQ SCH ×4 (07:01→21:22)
[2018-08-11] MEDS: metFORMIN HCL 500 MG TABLET (FP) PO SCH ×2 (07:01→17:14)
[2018-08-11] MEDS: amLODIPine BESYLATE 10 MG TABLET (FP) PO SCH (09:40)
[2018-08-11] MEDS: NICOTINE 21 MG/24 HOURS TOPICAL PATCH TD SCH (09:40)
[2018-08-11] MEDS: IBUPROFEN 400 MG TABLET (FP) PO PRN ×2 (09:40→17:19)
[2018-08-11] MEDS: PRENATAL VITAMINS W/ FOLIC ACID TABLET (FP) PO SCH (09:40)
[2018-08-11] MEDS ORDERED: INSULIN (NOVOLOG) ASPART 100 UNITS/ML 10ML VIAL ONE ×2 (12:17→17:15)
[2018-08-11] MEDS: MELATONIN 5 MG TABLETS PO PRN (21:20)
[2018-08-11] MEDS: THIAMINE HCL 100 MG TABLET (FP) PO SCH (21:20)
[2018-08-11] MEDS: NICOTINE POLACRILEX 2 MG GUM BUC PRN (21:20)
[2018-08-12] MEDS: NICOTINE POLACRILEX 2 MG GUM BUC PRN ×2 (06:03→09:58)
[2018-08-12] MEDS: INSULIN SLIDING SCALE (NOVOLOG) 1 VIAL SQ SCH ×4 (07:03→21:09)
[2018-08-12] MEDS: metFORMIN HCL 500 MG TABLET (FP) PO SCH ×2 (07:03→16:49)
[2018-08-12] MEDS: NICOTINE 21 MG/24 HOURS TOPICAL PATCH TD SCH (09:57)
[2018-08-12] MEDS: PRENATAL VITAMINS W/ FOLIC ACID TABLET (FP) PO SCH (09:57)
[2018-08-12] MEDS: amLODIPine BESYLATE 10 MG TABLET (FP) PO SCH (09:57)
[2018-08-12] MEDS: IBUPROFEN 400 MG TABLET (FP) PO PRN ×2 (09:58→21:09)
[2018-08-12] MEDS ORDERED: INSULIN (NOVOLOG) ASPART 100 UNITS/ML 10ML VIAL ONE ×3 (11:38→21:08)
[2018-08-12] MEDS: THIAMINE HCL 100 MG TABLET (FP) PO SCH (21:04)
[2018-08-12] MEDS: MELATONIN 5 MG TABLETS PO PRN (21:08)
[2018-08-13] MEDS: INSULIN SLIDING SCALE (NOVOLOG) 1 VIAL SQ SCH ×4 (07:25→21:22)
[2018-08-13] MEDS: metFORMIN HCL 500 MG TABLET (FP) PO SCH ×2 (07:25→16:43)
[2018-08-13] MEDS: NICOTINE 21 MG/24 HOURS TOPICAL PATCH TD SCH (09:59)
[2018-08-13] MEDS: PRENATAL VITAMINS W/ FOLIC ACID TABLET (FP) PO SCH (09:59)
[2018-08-13] MEDS: amLODIPine BESYLATE 10 MG TABLET (FP) PO SCH (09:59)
[2018-08-13] MEDS: IBUPROFEN 400 MG TABLET (FP) PO PRN ×2 (10:00→21:23)
[2018-08-13] MEDS ORDERED: INSULIN (NOVOLOG) ASPART 100 UNITS/ML 10ML VIAL ONE ×2 (11:55→16:33)
[2018-08-13] MEDS: NICOTINE POLACRILEX 2 MG GUM BUC PRN (16:45)
[2018-08-13] MEDS: MELATONIN 5 MG TABLETS PO PRN (21:23)
[2018-08-13] MEDS: THIAMINE HCL 100 MG TABLET (FP) PO SCH (21:23)
[2018-08-14] MEDS: metFORMIN HCL 500 MG TABLET (FP) PO SCH ×2 (06:45→17:00)
[2018-08-14] MEDS: INSULIN SLIDING SCALE (NOVOLOG) 1 VIAL SQ SCH ×4 (06:45→22:02)
[2018-08-14] MEDS: amLODIPine BESYLATE 10 MG TABLET (FP) PO SCH (10:06)
[2018-08-14] MEDS: PRENATAL VITAMINS W/ FOLIC ACID TABLET (FP) PO SCH (10:06)
[2018-08-14] MEDS: NICOTINE 21 MG/24 HOURS TOPICAL PATCH TD SCH (10:07)
[2018-08-14] MEDS ORDERED: INSULIN (NOVOLOG) ASPART 100 UNITS/ML 10ML VIAL ONE ×2 (17:00→23:29)
[2018-08-14] MEDS: THIAMINE HCL 100 MG TABLET (FP) PO SCH (22:04)
[2018-08-14] MEDS: IBUPROFEN 400 MG TABLET (FP) PO PRN (22:04)
[2018-08-14] MEDS: MAG HYDROX/AL HYDROX/SIMETH 30 ML UNIT-DOSE CUP PO PRN (22:04)
[2018-08-14] MEDS: NICOTINE POLACRILEX 2 MG GUM BUC PRN (22:05)
[2018-08-14] MEDS: MELATONIN 5 MG TABLETS PO PRN (22:05)
[2018-08-15] MEDS: metFORMIN HCL 500 MG TABLET (FP) PO SCH ×2 (06:27→17:01)
[2018-08-15] MEDS ORDERED: INSULIN (NOVOLOG) ASPART 100 UNITS/ML 10ML VIAL ONE ×3 (06:29→21:26)
[2018-08-15] MEDS: INSULIN SLIDING SCALE (NOVOLOG) 1 VIAL SQ SCH ×4 (06:30→21:26)
[2018-08-15] MEDS: amLODIPine BESYLATE 10 MG TABLET (FP) PO SCH (09:37)
[2018-08-15] MEDS: PRENATAL VITAMINS W/ FOLIC ACID TABLET (FP) PO SCH (09:37)
[2018-08-15] MEDS: NICOTINE 21 MG/24 HOURS TOPICAL PATCH TD SCH (09:37)
[2018-08-15] MEDS: IBUPROFEN 400 MG TABLET (FP) PO PRN (09:39)
[2018-08-15] MEDS: NICOTINE POLACRILEX 2 MG GUM BUC PRN (21:21)
[2018-08-15] MEDS: THIAMINE HCL 100 MG TABLET (FP) PO SCH (21:21)
[2018-08-15] MEDS: MELATONIN 5 MG TABLETS PO PRN (21:21)
[2018-08-16] MEDS: INSULIN SLIDING SCALE (NOVOLOG) 1 VIAL SQ SCH ×4 (06:56→21:15)
[2018-08-16] MEDS: metFORMIN HCL 500 MG TABLET (FP) PO SCH ×2 (06:56→16:42)
[2018-08-16] MEDS: PRENATAL VITAMINS W/ FOLIC ACID TABLET (FP) PO SCH (10:06)
[2018-08-16] MEDS: amLODIPine BESYLATE 10 MG TABLET (FP) PO SCH (10:06)
[2018-08-16] MEDS: IBUPROFEN 400 MG TABLET (FP) PO PRN ×2 (10:06→21:16)
[2018-08-16] MEDS: NICOTINE 21 MG/24 HOURS TOPICAL PATCH TD SCH (10:06)
[2018-08-16] MEDS ORDERED: INSULIN (NOVOLOG) ASPART 100 UNITS/ML 10ML VIAL ONE ×2 (11:49→16:34)
[2018-08-16] MEDS: THIAMINE HCL 100 MG TABLET (FP) PO SCH (21:16)
[2018-08-16] MEDS: MELATONIN 5 MG TABLETS PO PRN (21:16)
[2018-08-16] MEDS: NICOTINE POLACRILEX 2 MG GUM BUC PRN (21:17)
[2018-08-17] MEDS: metFORMIN HCL 500 MG TABLET (FP) PO SCH ×2 (06:45→17:27)
[2018-08-17] MEDS: INSULIN SLIDING SCALE (NOVOLOG) 1 VIAL SQ SCH ×4 (06:46→21:24)
[2018-08-17] MEDS: PRENATAL VITAMINS W/ FOLIC ACID TABLET (FP) PO SCH (09:48)
[2018-08-17] MEDS: NICOTINE 21 MG/24 HOURS TOPICAL PATCH TD SCH (09:48)
[2018-08-17] MEDS: amLODIPine BESYLATE 10 MG TABLET (FP) PO SCH (09:48)
[2018-08-17] MEDS: IBUPROFEN 400 MG TABLET (FP) PO PRN ×2 (09:50→21:23)
[2018-08-17] MEDS: NICOTINE POLACRILEX 2 MG GUM BUC PRN ×2 (09:51→21:24)
[2018-08-17] MEDS ORDERED: INSULIN (NOVOLOG) ASPART 100 UNITS/ML 10ML VIAL ONE ×2 (11:57→17:24)
[2018-08-17] MEDS: THIAMINE HCL 100 MG TABLET (FP) PO SCH (21:23)
[2018-08-17] MEDS: MELATONIN 5 MG TABLETS PO PRN (21:23)
[2018-08-18] MEDS: NICOTINE POLACRILEX 2 MG GUM BUC PRN ×3 (06:07→21:09)
[2018-08-18] MEDS: metFORMIN HCL 500 MG TABLET (FP) PO SCH ×2 (06:55→16:44)
[2018-08-18] MEDS: INSULIN SLIDING SCALE (NOVOLOG) 1 VIAL SQ SCH ×4 (06:55→21:05)
[2018-08-18] MEDS: amLODIPine BESYLATE 10 MG TABLET (FP) PO SCH (10:00)
[2018-08-18] MEDS: PRENATAL VITAMINS W/ FOLIC ACID TABLET (FP) PO SCH (10:00)
[2018-08-18] MEDS: NICOTINE 21 MG/24 HOURS TOPICAL PATCH TD SCH (10:00)
[2018-08-18] MEDS: IBUPROFEN 400 MG TABLET (FP) PO PRN ×2 (10:01→21:07)
[2018-08-18] MEDS ORDERED: INSULIN (NOVOLOG) ASPART 100 UNITS/ML 10ML VIAL ONE ×2 (12:04→20:22)
[2018-08-18] MEDS: THIAMINE HCL 100 MG TABLET (FP) PO SCH (21:05)
[2018-08-18] MEDS: MELATONIN 5 MG TABLETS PO PRN (21:06)
[2018-08-18] MEDS: MAG HYDROX/AL HYDROX/SIMETH 30 ML UNIT-DOSE CUP PO PRN (21:09)
[2018-08-19] MEDS: metFORMIN HCL 500 MG TABLET (FP) PO SCH ×2 (06:43→17:03)
[2018-08-19] MEDS: NICOTINE POLACRILEX 2 MG GUM BUC PRN ×3 (06:43→21:18)
[2018-08-19] MEDS: INSULIN SLIDING SCALE (NOVOLOG) 1 VIAL SQ SCH ×4 (06:43→21:19)
[2018-08-19] MEDS: PRENATAL VITAMINS W/ FOLIC ACID TABLET (FP) PO SCH (09:57)
[2018-08-19] MEDS: NICOTINE 21 MG/24 HOURS TOPICAL PATCH TD SCH (09:57)
[2018-08-19] MEDS: amLODIPine BESYLATE 10 MG TABLET (FP) PO SCH (09:57)
[2018-08-19] MEDS: IBUPROFEN 400 MG TABLET (FP) PO PRN ×2 (09:58→21:17)
[2018-08-19] MEDS ORDERED: INSULIN (NOVOLOG) ASPART 100 UNITS/ML 10ML VIAL ONE (11:37)
[2018-08-19] MEDS: THIAMINE HCL 100 MG TABLET (FP) PO SCH (21:17)
[2018-08-19] MEDS: MELATONIN 5 MG TABLETS PO PRN (21:17)
[2018-08-20] MEDS: INSULIN SLIDING SCALE (NOVOLOG) 1 VIAL SQ SCH ×4 (06:15→21:16)
[2018-08-20] MEDS: metFORMIN HCL 500 MG TABLET (FP) PO SCH ×2 (06:15→16:54)
[2018-08-20] MEDS: NICOTINE POLACRILEX 2 MG GUM BUC PRN ×4 (06:16→21:19)
[2018-08-20] MEDS: IBUPROFEN 400 MG TABLET (FP) PO PRN ×2 (06:17→21:16)
[2018-08-20] MEDS: NICOTINE 21 MG/24 HOURS TOPICAL PATCH TD SCH (10:07)
[2018-08-20] MEDS: amLODIPine BESYLATE 10 MG TABLET (FP) PO SCH (10:07)
[2018-08-20] MEDS: PRENATAL VITAMINS W/ FOLIC ACID TABLET (FP) PO SCH (10:07)
[2018-08-20] MEDS ORDERED: INSULIN (NOVOLOG) ASPART 100 UNITS/ML 10ML VIAL ONE (12:12)
[2018-08-20] MEDS: THIAMINE HCL 100 MG TABLET (FP) PO SCH (21:16)
[2018-08-20] MEDS: MELATONIN 5 MG TABLETS PO PRN (21:17)
[2018-08-21] MEDS: INSULIN SLIDING SCALE (NOVOLOG) 1 VIAL SQ SCH ×4 (07:31→21:19)
[2018-08-21] MEDS: metFORMIN HCL 500 MG TABLET (FP) PO SCH ×2 (07:31→16:44)
[2018-08-21] MEDS: IBUPROFEN 400 MG TABLET (FP) PO PRN ×2 (10:21→21:18)
[2018-08-21] MEDS: amLODIPine BESYLATE 10 MG TABLET (FP) PO SCH (10:21)
[2018-08-21] MEDS: NICOTINE 21 MG/24 HOURS TOPICAL PATCH TD SCH (10:21)
[2018-08-21] MEDS: PRENATAL VITAMINS W/ FOLIC ACID TABLET (FP) PO SCH (10:21)
[2018-08-21] MEDS ORDERED: INSULIN (NOVOLOG) ASPART 100 UNITS/ML 10ML VIAL ONE (12:08)
[2018-08-21] MEDS: NICOTINE POLACRILEX 2 MG GUM BUC PRN (16:45)
[2018-08-21] MEDS: MELATONIN 5 MG TABLETS PO PRN (21:18)
[2018-08-21] MEDS: THIAMINE HCL 100 MG TABLET (FP) PO SCH (21:18)
[2018-08-22] MEDS: NICOTINE POLACRILEX 2 MG GUM BUC PRN ×2 (06:07→16:39)
[2018-08-22] MEDS: INSULIN SLIDING SCALE (NOVOLOG) 1 VIAL SQ SCH ×4 (06:45→21:33)
[2018-08-22] MEDS: metFORMIN HCL 500 MG TABLET (FP) PO SCH ×2 (06:45→16:38)
[2018-08-22] MEDS: PRENATAL VITAMINS W/ FOLIC ACID TABLET (FP) PO SCH (10:06)
[2018-08-22] MEDS: amLODIPine BESYLATE 10 MG TABLET (FP) PO SCH (10:06)
[2018-08-22] MEDS: NICOTINE 21 MG/24 HOURS TOPICAL PATCH TD SCH (10:06)
[2018-08-22] MEDS: IBUPROFEN 400 MG TABLET (FP) PO PRN ×2 (10:08→21:31)
[2018-08-22] MEDS: MELATONIN 5 MG TABLETS PO PRN (21:31)
[2018-08-22] MEDS: THIAMINE HCL 100 MG TABLET (FP) PO SCH (21:33)
[2018-08-23] MEDS: metFORMIN HCL 500 MG TABLET (FP) PO SCH ×2 (06:21→16:37)
[2018-08-23] MEDS: INSULIN SLIDING SCALE (NOVOLOG) 1 VIAL SQ SCH ×4 (07:34→21:30)
[2018-08-23] MEDS: PRENATAL VITAMINS W/ FOLIC ACID TABLET (FP) PO SCH (10:19)
[2018-08-23] MEDS: amLODIPine BESYLATE 10 MG TABLET (FP) PO SCH (10:19)
[2018-08-23] MEDS: NICOTINE 21 MG/24 HOURS TOPICAL PATCH TD SCH (10:19)
[2018-08-23] MEDS: IBUPROFEN 400 MG TABLET (FP) PO PRN ×2 (10:21→21:29)
[2018-08-23] MEDS ORDERED: INSULIN (NOVOLOG) ASPART 100 UNITS/ML 10ML VIAL ONE (11:35)
[2018-08-23] MEDS: THIAMINE HCL 100 MG TABLET (FP) PO SCH (21:28)
[2018-08-23] MEDS: MELATONIN 5 MG TABLETS PO PRN (21:28)
[2018-08-23] MEDS: NICOTINE POLACRILEX 2 MG GUM BUC PRN (21:30)
[2018-08-24] MEDS: IBUPROFEN 400 MG TABLET (FP) PO PRN ×3 (04:56→21:11)
[2018-08-24] MEDS: metFORMIN HCL 500 MG TABLET (FP) PO SCH ×2 (07:21→16:46)
[2018-08-24] MEDS: INSULIN SLIDING SCALE (NOVOLOG) 1 VIAL SQ SCH ×4 (07:21→21:12)
[2018-08-24] MEDS: amLODIPine BESYLATE 10 MG TABLET (FP) PO SCH (10:11)
[2018-08-24] MEDS: PRENATAL VITAMINS W/ FOLIC ACID TABLET (FP) PO SCH (10:11)
[2018-08-24] MEDS: NICOTINE 21 MG/24 HOURS TOPICAL PATCH TD SCH (10:11)
[2018-08-24] MEDS ORDERED: INSULIN (NOVOLOG) ASPART 100 UNITS/ML 10ML VIAL ONE (11:56)
[2018-08-24] MEDS: NICOTINE POLACRILEX 2 MG GUM BUC PRN (16:46)
[2018-08-24] MEDS: THIAMINE HCL 100 MG TABLET (FP) PO SCH (21:11)
[2018-08-24] MEDS: MELATONIN 5 MG TABLETS PO PRN (21:11)
[2018-08-25] MEDS: IBUPROFEN 400 MG TABLET (FP) PO PRN ×3 (06:08→21:45)
[2018-08-25] MEDS: metFORMIN HCL 500 MG TABLET (FP) PO SCH ×2 (07:02→16:56)
[2018-08-25] MEDS: INSULIN SLIDING SCALE (NOVOLOG) 1 VIAL SQ SCH ×4 (07:02→21:45)
[2018-08-25] MEDS: PRENATAL VITAMINS W/ FOLIC ACID TABLET (FP) PO SCH (10:02)
[2018-08-25] MEDS: amLODIPine BESYLATE 10 MG TABLET (FP) PO SCH (10:02)
[2018-08-25] MEDS: NICOTINE 21 MG/24 HOURS TOPICAL PATCH TD SCH (10:02)
[2018-08-25] MEDS ORDERED: INSULIN (NOVOLOG) ASPART 100 UNITS/ML 10ML VIAL ONE ×3 (12:06→21:29)
[2018-08-25] MEDS: NICOTINE POLACRILEX 2 MG GUM BUC PRN ×2 (16:56→21:45)
[2018-08-25] MEDS: THIAMINE HCL 100 MG TABLET (FP) PO SCH (21:45)
[2018-08-25] MEDS: MELATONIN 5 MG TABLETS PO PRN (21:47)
[2018-08-26] MEDS: INSULIN SLIDING SCALE (NOVOLOG) 1 VIAL SQ SCH ×5 (00:13→21:20)
[2018-08-26] MEDS: metFORMIN HCL 500 MG TABLET (FP) PO SCH ×2 (06:59→16:46)
[2018-08-26] MEDS: NICOTINE 21 MG/24 HOURS TOPICAL PATCH TD SCH (09:49)
[2018-08-26] MEDS: amLODIPine BESYLATE 10 MG TABLET (FP) PO SCH (09:49)
[2018-08-26] MEDS: PRENATAL VITAMINS W/ FOLIC ACID TABLET (FP) PO SCH (09:49)
[2018-08-26] MEDS: IBUPROFEN 400 MG TABLET (FP) PO PRN ×2 (09:50→21:20)
[2018-08-26] MEDS ORDERED: INSULIN (NOVOLOG) ASPART 100 UNITS/ML 10ML VIAL ONE ×2 (11:50→16:36)
[2018-08-26] MEDS: MELATONIN 5 MG TABLETS PO PRN (21:20)
[2018-08-26] MEDS: THIAMINE HCL 100 MG TABLET (FP) PO SCH (21:20)
[2018-08-26] MEDS: NICOTINE POLACRILEX 2 MG GUM BUC PRN (21:22)
[2018-08-27] MEDS: metFORMIN HCL 500 MG TABLET (FP) PO SCH ×2 (06:09→16:53)
[2018-08-27] MEDS: INSULIN SLIDING SCALE (NOVOLOG) 1 VIAL SQ SCH ×4 (06:10→21:16)
[2018-08-27] MEDS: NICOTINE POLACRILEX 2 MG GUM BUC PRN ×2 (06:10→16:54)
[2018-08-27] MEDS: amLODIPine BESYLATE 10 MG TABLET (FP) PO SCH (10:05)
[2018-08-27] MEDS: PRENATAL VITAMINS W/ FOLIC ACID TABLET (FP) PO SCH (10:05)
[2018-08-27] MEDS: NICOTINE 21 MG/24 HOURS TOPICAL PATCH TD SCH (10:06)
[2018-08-27] MEDS: IBUPROFEN 400 MG TABLET (FP) PO PRN ×2 (10:06→21:16)
[2018-08-27] MEDS ORDERED: INSULIN (NOVOLOG) ASPART 100 UNITS/ML 10ML VIAL ONE (16:47)
[2018-08-27] MEDS: THIAMINE HCL 100 MG TABLET (FP) PO SCH (21:16)
[2018-08-27] MEDS: MELATONIN 5 MG TABLETS PO PRN (21:17)
[2018-08-28] MEDS: metFORMIN HCL 500 MG TABLET (FP) PO SCH ×2 (06:51→16:19)
[2018-08-28] MEDS: INSULIN SLIDING SCALE (NOVOLOG) 1 VIAL SQ SCH ×4 (06:53→21:23)
[2018-08-28] MEDS: amLODIPine BESYLATE 10 MG TABLET (FP) PO SCH (08:59)
[2018-08-28] MEDS: PRENATAL VITAMINS W/ FOLIC ACID TABLET (FP) PO SCH (09:00)
[2018-08-28] MEDS: NICOTINE 21 MG/24 HOURS TOPICAL PATCH TD SCH (09:00)
[2018-08-28] MEDS: IBUPROFEN 400 MG TABLET (FP) PO PRN ×3 (09:00→21:21)
[2018-08-28] MEDS ORDERED: INSULIN (NOVOLOG) ASPART 100 UNITS/ML 10ML VIAL ONE ×2 (11:46→16:21)
[2018-08-28] MEDS: NICOTINE POLACRILEX 2 MG GUM BUC PRN ×2 (16:21→21:26)
[2018-08-28] MEDS: MELATONIN 5 MG TABLETS PO PRN (21:20)
[2018-08-28] MEDS: THIAMINE HCL 100 MG TABLET (FP) PO SCH (21:20)
[2018-08-29] MEDS: NICOTINE POLACRILEX 2 MG GUM BUC PRN ×3 (06:15→21:01)
[2018-08-29] MEDS: INSULIN SLIDING SCALE (NOVOLOG) 1 VIAL SQ SCH ×4 (06:17→22:26)
[2018-08-29] MEDS: metFORMIN HCL 500 MG TABLET (FP) PO SCH ×2 (06:17→17:21)
[2018-08-29] MEDS: PRENATAL VITAMINS W/ FOLIC ACID TABLET (FP) PO SCH (09:43)
[2018-08-29] MEDS: NICOTINE 21 MG/24 HOURS TOPICAL PATCH TD SCH (09:43)
[2018-08-29] MEDS: amLODIPine BESYLATE 10 MG TABLET (FP) PO SCH (09:43)
[2018-08-29] MEDS: IBUPROFEN 400 MG TABLET (FP) PO PRN (09:43)
[2018-08-29] MEDS ORDERED: INSULIN (NOVOLOG) ASPART 100 UNITS/ML 10ML VIAL ONE ×2 (11:52→22:27)
[2018-08-29] MEDS: THIAMINE HCL 100 MG TABLET (FP) PO SCH (21:00)
[2018-08-29] MEDS: MELATONIN 5 MG TABLETS PO PRN (21:01)
[2018-08-30] MEDS: metFORMIN HCL 500 MG TABLET (FP) PO SCH ×2 (06:53→16:43)
[2018-08-30] MEDS: INSULIN SLIDING SCALE (NOVOLOG) 1 VIAL SQ SCH ×4 (06:53→21:19)
[2018-08-30] MEDS: PRENATAL VITAMINS W/ FOLIC ACID TABLET (FP) PO SCH (10:06)
[2018-08-30] MEDS: NICOTINE 21 MG/24 HOURS TOPICAL PATCH TD SCH (10:06)
[2018-08-30] MEDS: amLODIPine BESYLATE 10 MG TABLET (FP) PO SCH (10:06)
[2018-08-30] MEDS: IBUPROFEN 400 MG TABLET (FP) PO PRN ×2 (10:07→21:19)
[2018-08-30] MEDS ORDERED: INSULIN (NOVOLOG) ASPART 100 UNITS/ML 10ML VIAL ONE ×4 (11:37→22:14)
[2018-08-30] MEDS: NICOTINE POLACRILEX 2 MG GUM BUC PRN ×2 (16:46→21:20)
[2018-08-30] MEDS: MELATONIN 5 MG TABLETS PO PRN (21:19)
[2018-08-30] MEDS: THIAMINE HCL 100 MG TABLET (FP) PO SCH (21:19)
[2018-08-31] MEDS: NICOTINE POLACRILEX 2 MG GUM BUC PRN ×3 (06:20→21:13)
[2018-08-31] MEDS: INSULIN SLIDING SCALE (NOVOLOG) 1 VIAL SQ SCH ×4 (07:11→21:17)
[2018-08-31] MEDS: metFORMIN HCL 500 MG TABLET (FP) PO SCH ×2 (07:11→16:44)
[2018-08-31] MEDS: PRENATAL VITAMINS W/ FOLIC ACID TABLET (FP) PO SCH (10:16)
[2018-08-31] MEDS: NICOTINE 21 MG/24 HOURS TOPICAL PATCH TD SCH (10:16)
[2018-08-31] MEDS: amLODIPine BESYLATE 10 MG TABLET (FP) PO SCH (10:16)
[2018-08-31] MEDS: IBUPROFEN 400 MG TABLET (FP) PO PRN ×2 (10:17→21:13)
[2018-08-31] MEDS ORDERED: INSULIN (NOVOLOG) ASPART 100 UNITS/ML 10ML VIAL ONE ×3 (12:06→22:32)
[2018-08-31] MEDS: MELATONIN 5 MG TABLETS PO PRN (21:13)
[2018-08-31] MEDS: THIAMINE HCL 100 MG TABLET (FP) PO SCH (21:13)
[2018-08-31] MEDS ORDERED: PT OWN MED DRAWER 7, Y5N ONE (22:33)
[2018-09-01] MEDS ORDERED: INSULIN (NOVOLOG) ASPART 100 UNITS/ML 10ML VIAL ONE ×3 (06:08→16:48)
[2018-09-01] MEDS: metFORMIN HCL 500 MG TABLET (FP) PO SCH ×2 (06:56→16:58)
[2018-09-01] MEDS: INSULIN SLIDING SCALE (NOVOLOG) 1 VIAL SQ SCH ×4 (06:56→21:18)
--- NOTE | 2018-09-01 09:45 | PN ---
Psychiatric Progress Note Vital Signs: Vital Signs Period Temp Pulse Resp BP Sys/Lundy Pulse Ox Last 24 Hr 97.5 F 69 18-18 160/83 Date of Session: 09/01/18 Chief Complaint:: Discharge Note HPI: Patient addressing Alcohol Dependence ROS: PPD+, HTM, type 2 DM, S/P AKA both legs Current Medications: Active Medications Generic Name Dose Route Start Last Admin Trade Name Freq PRN Reason Stop Dose Admin Acetaminophen 650 mg 08/05/18 20:21 08/11/18 06:06 Tylenol - PO 650 mg Q4H PRN Administration FEVER Al Hydroxide/Mg Hydroxide 30 ml 08/05/18 20:21 08/18/18 21:09 Mylanta Oral Suspension - PO 30 ml Q6H PRN Administration DYSPEPSIA Amlodipine Besylate 10 mg 08/06/18 10:00 08/31/18 10:16 Norvasc - PO 10 mg DAILY DIANE Administration Eucalyptus/Menthol/Phenol/Sorbitol 1 each 08/05/18 20:21 Cepastat Lozenge - MM Q4H PRN SORE THROAT Ibuprofen 400 mg 08/05/18 20:21 08/31/18 21:13 Motrin - PO 400 mg Q6H PRN Administration Pain Level 4-6 Insulin Aspart 1 vial 08/05/18 22:00 09/01/18 06:56 Novolog Vial Sliding Scale - SQ 2 units ACHS DIANE Administration Protocol Loperamide HCl 4 mg 08/05/18 20:21 Imodium - PO Q6H PRN DIARRHEA Magnesium Citrate 300 ml 08/05/18 20:21 Citroma - PO Q48H PRN CONSTIPATION Magnesium Hydroxide 30 ml 08/05/18 20:21 Milk Of Magnesia - PO DAILY PRN CONSTIPATION Melatonin 5 mg 08/05/18 22:00 08/31/18 21:13 Melatonin PO 5 mg HS PRN Administration INSOMNIA Metformin HCl 500 mg 08/06/18 07:00 09/01/18 06:56 Glucophage - PO 500 mg BIDAC DIANE Administration Nicotine 21 mg 08/06/18 12:45 08/31/18 10:16 Nicoderm Patch - TD 21 mg DAILY DIANE Administration Nicotine Polacrilex 2 mg 08/05/18 20:21 08/31/18 21:13 Nicorette Gum - BUC 2 mg Q2H PRN Administration NICOTINE REPLACEMENT RX Multivit/Folic Acid/Iron 1 tab 08/06/18 10:00 08/31/18 10:16 Vitamins (Sjr) - PO 1 tab DAILY DIANE Administration Thiamine HCl 100 mg 08/05/18 22:00 08/31/18 21:13 Vitamin B1 - PO 100 mg HS DIANE Administration Current Side Effect: No Lab tests ordered: Yes Lab tests reviewed: Yes Provider note:: Patient will complete this program on 09/02/18. He has met his treatment goals and will continue to address his issues in termite helper residential treatment at [facility]. Told journalists and other writers that from his participation in this program, he has learned that it is imperative that he stop drinking and attend to his medical issues. He is stable for discharge today Total face to face time:: 35 Mental Status Exam - Mental Status Exam Alert and Oriented to: Time, Place, Person Cognitive Function: Fair Patient Appearance: Well Groomed Mood: Hopeful, Euthymic Affect: Appropriate Patient Behavior: Cooperative Speech Pattern: Garbled Voice Loudness: Normal Thought Process: Intact, Goal Oriented Hallucinations: Denies Suicidal Ideation: Denies Homicidal Ideation: Denies Insight/Judgement: Fair Sleep: Fair Appetite: Fair Muscle strength/Tone: Normal Gait/Station: Normal Psychiatric Treatment Plan - Problem List (1) Alcohol dependence Current Visit: Yes (2) DM type 2 (diabetes mellitus, type 2) Current Visit: Yes Qualifiers: Diabetes mellitus termite helper insulin use: without termite helper use Diabetes mellitus complication status: with unspecified complications Qualified Code(s) : E11.8 - Type 2 diabetes mellitus with unspecified complications (3) Hypertension Current Visit: Yes Qualifiers: Hypertension type: essential hypertension Qualified Code(s): I10 - Essential (primary) hypertension (4) Positive PPD Current Visit: Yes (5) S/P AKA (above knee amputation) bilateral Current Visit: Yes Initial treatment plan: Patient will be discharged tomorrow and refered to [facility] for alf residential treatment
[2018-09-01] MEDS: NICOTINE 21 MG/24 HOURS TOPICAL PATCH TD SCH (09:49)
[2018-09-01] MEDS: amLODIPine BESYLATE 10 MG TABLET (FP) PO SCH (09:49)
[2018-09-01] MEDS: IBUPROFEN 400 MG TABLET (FP) PO PRN ×2 (09:49→21:19)
[2018-09-01] MEDS: NICOTINE POLACRILEX 2 MG GUM BUC PRN ×3 (09:49→21:20)
[2018-09-01] MEDS: PRENATAL VITAMINS W/ FOLIC ACID TABLET (FP) PO SCH (09:49)
[2018-09-01] MEDS ORDERED: PT OWN MED DRAWER 7, Y5N ONE (12:07)
[2018-09-01] MEDS: THIAMINE HCL 100 MG TABLET (FP) PO SCH (21:18)
[2018-09-01] MEDS: MELATONIN 5 MG TABLETS PO PRN (21:18)
[2018-09-02] MEDS: IBUPROFEN 400 MG TABLET (FP) PO PRN (06:00)
[2018-09-02] MEDS: metFORMIN HCL 500 MG TABLET (FP) PO SCH (06:13)
[2018-09-02] MEDS: INSULIN SLIDING SCALE (NOVOLOG) 1 VIAL SQ SCH (06:13)
[2018-09-02 06:28] VITALS: BP 150/82; PULSE 65; TEMP 97.8
[2018-09-02] MEDS: PRENATAL VITAMINS W/ FOLIC ACID TABLET (FP) PO SCH (09:53)
[2018-09-02] MEDS: NICOTINE 21 MG/24 HOURS TOPICAL PATCH TD SCH (09:53)
[2018-09-02] MEDS: amLODIPine BESYLATE 10 MG TABLET (FP) PO SCH (09:53)
[2018-09-02] MEDS: NICOTINE POLACRILEX 2 MG GUM BUC PRN (09:54)
== END 2018-09-02 10:55 | disposition home or self-care (01) | DRG 895 ==
LOC: YASAS 19:05 → Y3W 19:15
PROVIDERS: ADMIT Psychiatry & Neurology Psychiatry; ATTEND Psychiatry & Neurology Psychiatry
PROC: HZ42ZZZ Group Counseling for Substance Abuse Treatment, Cognitive-Behavioral (ICD-10-PCS; principal; 2018-08-05)
DX: F10.20 Alcohol dependence, uncomplicated (principal); I10 Essential (primary) hypertension; E11.8 Type 2 diabetes mellitus with unspecified complications; Z79.84 Long term (current) use of oral hypoglycemic drugs; R76.11 Nonspecific reaction to tuberculin skin test without active tuberculosis; Z89.612 Acquired absence of left leg above knee; Z89.611 Acquired absence of right leg above knee; Z91.81 History of falling
CPT/HCPCS: 82962